=== PATIENT | male | born 1955 | race Caucasian/White ===

== ENCOUNTER 2017-06-02 09:54 | Inpatient (IN) ==
[2017-06-02 10:14] LABS: Basophils % 0.4 %; Eosinophils # 0.3 K/mcL (0.0-0.6); Eosinophils % 3.4 %; Hematocrit 38.7 % (37.5-50.1); Immature Granulocytes % 0.8 % (0-4); Lymphocytes # 1.5 K/mcL (0.6-4.6); Lymphocytes % 17.4 %; Mean Corpuscular HGB Conc 33.6 g/dL (31.6-35.5); Mean Corpuscular Hemoglobin 28.8 pg (28.0-33.3); Mean Corpuscular Volume 85.8 fL (83.0-100.0); Mean Platelet Volume 9.6 fL (9.4-12.4); Monocytes # 0.7 K/mcL (0.0-1.3); Monocytes % 7.8 %; Neutrophils # 5.9 K/mcL (1.6-8.9); Platelet Count 260 K/mcL (140-400); Red Blood Count 4.51 M/mcL (4.19-5.50); Red Cell Distribution Width 12.7 % (11.5-14.5); Segmented Neutrophils % 70.2 %
[2017-06-02 10:17] LABS: Prothrombin Time 11.2 Seconds (9.4-12.1)
[2017-06-02 10:20] LABS: Activated Partial Thrombo Time 31.9 Seconds (26.0-36.0)
[2017-06-02 10:28] LABS: BUN/Creatinine Ratio 15 (6-26); Blood Urea Nitrogen 15 mg/dL (8-26); Carbon Dioxide 24 mEq/L (19-29); Chloride 105 mEq/L (98-109); Glucose 117 mg/dL (70-99); Osmolality,Calculated 292 (280-300); Potassium 3.6 mEq/L (3.5-4.5); Sodium 140 mEq/L (136-145); eGFR For African Americans > 60 (> 60); eGFR For Non-African Americans > 60 (> 60)
--- NOTE | 2017-06-02 10:44 | Emergency Department Note ---
START Narrative - START START: I examined this patient and my medical decision-making was reviewed with the Resident Physician. I agree with the documented findings, disposition and treatment plan as described except to the extent set forth below. The patient to ED with a chief complaint of stroke symptoms. 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 He began having difficulty speaking. He was normal this morning before he left for work. is here at bedside and attests of the same. No history of stroke, but his father of one. On examination he is awake and alert. Mild difficulty with speech. Slurring. Mild flattening of the right nasolabial fold. Plan. Stroke alert was called. We performed telestroke with [facility]. TPA was offered for his NIH of 2, however his symptoms were improving. After discussing risks benefits with him he and his opted not to receive TPA. Patient will be admitted here for further stroke workup. CT head is negative. 40 minutes of critical care exclusive of separately billable procedures.
--- NOTE | 2017-06-02 10:51 | Emergency Department Note ---
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 The patient was awake without problem earlier today. At approximately 8:15 the patient developed a headache as well as dizziness and unsteadiness on his feet. He states that he was having a hard time coming up with how to say what he was thinking. Patient continues to have some slowness of thoughts. On exam the patient has a flattening of the nasolabial fold as well as some minor right- sided pronator drift. He should was unsteady while standing however his finger to nose and heel to fong are intact. No weakness or paresthesias throughout the extremities. Patient has not had anything similar in the past. We will activate the stroke alert and discuss with [facility]. - Related Data Home Medications: Home Medications Medication Instructions Recorded Confirmed Amlodipine Besylate 10 mg PO DAILY 06/02/17 06/02/17 Aspirin [Lo-Dose Aspirin EC] 81 mg PO DAILY 06/02/17 06/02/17 Cyclobenzaprine [Flexeril] 10 mg PO TID 06/02/17 06/02/17 Hydrochlorothiazide [Microzide] 12.5 mg PO DAILY 06/02/17 06/02/17 Irbesartan [Avapro] 300 mg PO DAILY 06/02/17 06/02/17 Metoprolol [Lopressor] 100 mg PO DAILY 06/02/17 06/02/17 Rosuvastatin [Crestor] 20 mg PO HS 06/02/17 06/02/17 Allergies/Adverse Reactions: Allergies Allergy/AdvReac Type Severity Reaction Status Date / Time No Known Allergies Allergy Verified 06/02/17 10:17 Review of Systems: CONSTITUTIONAL: No weight loss, fever, chills, weakness or fatigue. HEENT: Eyes: No visual changes. Ears, Nose, Throat: No hearing loss, difficulty talking or unable to swallow. SKIN: No rash or itching. CARDIOVASCULAR: No chest pain, chest pressure or chest discomfort. No palpitations or edema. RESPIRATORY: No shortness of breath, cough or sputum. GASTROINTESTINAL: No anorexia, nausea, vomiting or diarrhea. No abdominal pain or blood. GENITOURINARY: No burning on urination or hematuria. NEUROLOGICAL: Headache, dizziness, abnormal gait, right facial nasolabial fold flattening, minor right-sided pronator drift. MUSCULOSKELETAL: No muscle pain, back pain, joint pain or stiffness. Past Medical History - Past Medical History Medical history: Reports: hyperlipidemia, hypertension Psychiatric history: Reports: no psych history - Social History Smoking Status: Never smoker Smokeless Tobacco Status: No Alcohol use: Reports: none Physical Exam - General Limitations: no limitations General appearance: alert - Head Head exam: atraumatic, normocephalic - Eye Eye exam: Present: normal appearance, PERRL, EOMI - ENT ENT exam: normal exam, normal oropharynx - Neck Neck exam: Present: normal inspection - Chest Chest inspection: Present: normal inspection, symmetric chest wall rise. Absent : tenderness - Respiratory Respiratory exam: Present: normal lung sounds bilaterally. Absent: respiratory distress, wheezes - Cardiovascular Cardiovascular exam: Present: regular rate, normal rhythm - Abdominal Exam Abdominal exam: Present: soft, Non-Tender - Extremities Exam Extremities exam: Present: normal inspection, full ROM. Absent: tenderness - Back Exam Back exam: Present: normal inspection. Absent: tenderness, CVA tenderness (R), CVA tenderness (L) - Neurological Exam Neurological exam: Present: alert, oriented X3, normal gait - Expanded Neurological Exam Patient oriented to: Present: person, place, time Cranial nerves: EOM function (II, III, IV, ): Normal, facial sensation (V): Normal, facial palsy (VII): Abnormal Right, gag reflex (IX): Normal, spinal accessory function (XI): Normal, tongue deviation (XII): Normal Cerebellar function: finger to nose: Normal, heel to fong: Normal Motor strength - LUE: 5/5 Motor strength - RUE: 5/5 Motor strength - LLE: 5/5 Motor strength - RLE: 5/5 Upper motor neuron exam: pronator drift: Present of right Sensory exam upper extremity: light touch: Normal Sensory exam lower extremity: light touch: Normal Coma Scale Eye Opening: Spontaneous Coma Scale Motor Response: Obeys Commands Coma Scale Verbal Response: Oriented (The patient is slow to come up with words. Occasional blank thoughts.) Coma Scale Total: 15 Course - Consultations Consultation #1: Case was discussed with [facility]. The patient is not a candidate for TPA at this time as his symptoms are minor. Risks and benefits weighed. Risk for TPA outweigh risk for observation. Consultation #2: Dr. Bynum discussed with Dr. Johnson. Patient accepted for admission. Vital Signs Temperature 97.8 F 06/02/17 10:04 Pulse Rate 62 06/02/17 10:04 Respiratory Rate 18 06/02/17 10:04 Blood Pressure 132/92 06/02/17 10:04 O2 Sat by Pulse Oximetry 97 06/02/17 10:04 Temperature 97.8 F 06/02/17 10:04 Pulse Rate 62 06/02/17 12:34 Respiratory Rate 12 06/02/17 12:34 Blood Pressure 120/81 06/02/17 12:34 O2 Sat by Pulse Oximetry 97 06/02/17 12:34 Oxygen Delivery Oxygen Delivery Room Air Neuro Symptoms/Deficit - Lab Data Result diagrams: 06/02/17 10:07 06/02/17 10:07 Lab Results 06/02/17 06/02/17 06/02/17 Range/Units 10:01 10:07 10:07 WBC 8.4 (4.3-11.1) K/mcL RBC 4.51 (4.19-5.50) M/mcL Hgb 13.0 (12.9-16.9) g/dL Hct 38.7 (37.5-50.1) % MCV 85.8 (83.0-100.0) fL MCH 28.8 (28.0-33.3) pg MCHC 33.6 (31.6-35.5) g/dL RDW 12.7 (11.5-14.5) % Plt Count 260 (140-400) K/mcL MPV 9.6 (9.4-12.4) fL Immature Gran % 0.8 (0-4) % Seg Neutrophils % 70.2 % Lymphocytes % 17.4 % Monocytes % 7.8 % Eosinophils % 3.4 % Basophils % 0.4 % Neutrophils # 5.9 (1.6-8.9) K/mcL Lymphocytes # 1.5 (0.6-4.6) K/mcL Monocytes # 0.7 (0.0-1.3) K/mcL Eosinophils # 0.3 (0.0-0.6) K/mcL Basophils # 0.0 (0.0-0.2) K/mcL PT 11.2 (9.4-12.1) Seconds INR 1.0 APTT 31.9 (26.0-36.0) Seconds Sodium (136-145) mEq/L Potassium (3.5-4.5) mEq/L Chloride (98-109) mEq/L Carbon Dioxide (19-29) mEq/L BUN (8-26) mg/dL Creatinine (0.72-1.25) mg/dL Est GFR ( Amer) (> 60) Est GFR (Non-Af Amer) (> 60) BUN/Creatinine Ratio (6-26) Glucose (70-99) mg/dL POC Glucose 106 H (58-89) Calculated Osmolality (280-300) Calcium (8.6-10.8) mg/dL Troponin I (0-0.03) ng/mL 06/02/17 06/02/17 Range/Units 10:07 10:07 WBC (4.3-11.1) K/mcL RBC (4.19-5.50) M/mcL Hgb (12.9-16.9) g/dL Hct (37.5-50.1) % MCV (83.0-100.0) fL MCH (28.0-33.3) pg MCHC (31.6-35.5) g/dL RDW (11.5-14.5) % Plt Count (140-400) K/mcL MPV (9.4-12.4) fL Immature Gran % (0-4) % Seg Neutrophils % % Lymphocytes % % Monocytes % % Eosinophils % % Basophils % % Neutrophils # (1.6-8.9) K/mcL Lymphocytes # (0.6-4.6) K/mcL Monocytes # (0.0-1.3) K/mcL Eosinophils # (0.0-0.6) K/mcL Basophils # (0.0-0.2) K/mcL PT (9.4-12.1) Seconds INR APTT (26.0-36.0) Seconds Sodium 140 (136-145) mEq/L Potassium 3.6 (3.5-4.5) mEq/L Chloride 105 (98-109) mEq/L Carbon Dioxide 24 (19-29) mEq/L BUN 15 (8-26) mg/dL Creatinine 0.97 (0.72-1.25) mg/dL Est GFR ( Amer) > 60 (> 60) Est GFR (Non-Af Amer) > 60 (> 60) BUN/Creatinine Ratio 15 (6-26) Glucose 117 H (70-99) mg/dL POC Glucose (58-89) Calculated Osmolality 292 (280-300) Calcium 9.0 (8.6-10.8) mg/dL Troponin I 0.00 (0-0.03) ng/mL TPA Checklist - LKW: 3-4.5 hrs Add. Warnings/Precautions Patient/family understanding: The patient/family members have been counseled and understood the risk, benefit , and alternatives of treatment.
--- NOTE | 2017-06-02 11:17 | Internal Med History&Physical ---
Date of Encounter: 06/02/17 Time of Encounter: 11:13 Assessment and Plan (1) CVA (cerebral vascular accident) Current visit: Yes Status: Acute Patient presents with a main complaining of dysarthria that started 8:15 AM in the morning. Patient was within 1st 3 hours to emergency room however his NIH stroke scale was only 2 therefore it was decided against thrombolytic therapy. Patient symptoms is already improving. Will admit patient to hospital check echocardiogram, carotid Doppler, hold all blood pressure medications and allow for permissive hypertension. Neurology service to see the patient. Continue aspirin and Ramsay. Qualifiers: Qualified Code(s): I63.9 - Cerebral infarction, unspecified (2) LBBB (left bundle branch block) Current visit: Yes Status: Acute Unchanged from his baseline according to his . Patient has baseline left bundle branch block. mentioned that he had a coronary angiogram 20 years ago showed no occlusive disease Internal Medicine - H&P: HPI Chief complaint: dysarthria History of present illness: Mr. Morales is a 61 year old male presents to the emergency room today with the main complain of dysarthria. Approximately 8:15 AM patient started noticing difficulty articulating speech. He also complained of dizziness as well as gate unsteadiness. He was normal when he woke up. He arrived to the emergency room within 3 hours of onset of symptoms. Patient symptoms had improved during my interview significantly but not yet back to baseline. Patient denies any prior similar symptoms. Patient denies any focal weakness tingling or numbness in any extremity. Past Med Surg Social Fam HX - Past Medical History Medical history: hyperlipidemia, hypertension Psychiatric history: no psych history - Social History Smoking Status: Never smoker Smokeless Tobacco Status: No Alcohol use: none - Family History Father Hx Family Cardiac Disorders: Yes Hx Family Neurologic Disorders: Yes (father from stroke) Mother Hx Family Cardiac Disorders: Yes Internal Medicine - H&P: Meds Amlodipine Besylate 10 mg PO DAILY 06/02/17 [History] Aspirin [Lo-Dose Aspirin EC] 81 mg PO DAILY 06/02/17 [History] Cyclobenzaprine [Flexeril] 10 mg PO TID 06/02/17 [History] Hydrochlorothiazide [Microzide] 12.5 mg PO DAILY 06/02/17 [History] Irbesartan [Avapro] 300 mg PO DAILY 06/02/17 [History] Metoprolol [Lopressor] 100 mg PO DAILY 06/02/17 [History] Rosuvastatin [Crestor] 20 mg PO HS 06/02/17 [History] 3 Allergy/AdvReac Type Severity Reaction Status Date / Time No Known Allergies Allergy Verified 06/02/17 10:17 All Systems PM: A 10-system review of systems was performed and is negative for pertinent findings except as documented above in the HPI. Review of systems: 10 point review of systems is negative except for HPI - Constitutional Vitals: Temp Pulse Resp BP Pulse Ox 97.8 F 66 8 132/81 99 06/02/17 10:04 06/02/17 11:04 06/02/17 11:04 06/02/17 11:04 06/02/17 11:04 Exam: Gen.: patient is alert oriented times 3 cardiac: normal S1 S2 no additional sounds or murmurs chest: no active wheezing or bronchial breathing abdomen soft nontender nondistended normal bowel sounds lower extremity no swelling. Neuro: dysarthria. Rest of neuro exam is unremarkable. Internal Med - H&P Results - Labs CBC & Chem 7: 06/02/17 10:07 06/02/17 10:07
--- NOTE | 2017-06-02 15:18 | Neurology - Consult Note ---
Date of Encounter: 06/02/17 Time of Encounter: 15:16 Assessment and Plan (1) Slurred speech Current Visit: Yes Status: Acute This patient who noted to have some slurring of the speech this morning seems to resolve now, with some unsteadiness, seems to be back to his baseline symptoms seems to be concerning off transient ischemic attack or perhaps he may have a small infarct. Patient due to stroke workup including MRI of the brain as well as carotid duplex and echocardiogram for any embolic source A to monitor his blood pressure and also need to monitor for any cardiac arrhythmias He is been on baby aspirin suggested to continue perhaps he may have to change to full dose or may need to add another antiplatelet agent like Plavix if MRI is positive for any acute infarct, check lipid profile Continue to monitor the blood pressure and keep it on a stable range no significant focal motor deficit do not think he would require any long-term rehabilitation History of Present Illness HPI: Mr. Morales is a 61 year old male admitted via emergency room today with the main complain of difficulty with speech, Approximately 8:15 AM patient started noticing difficulty articulating speech, along with dizziness as well as gate unsteadiness. he knows what he want to say but didt come out right, He arrived to the emergency room within 3 hours of onset of symptoms. Patient symptoms had improved in ER and not a TPA candidate due to improvement in symptoms, Patient denies any prior similar symptoms. Patient denies any focal weakness tingling or numbness in any extremity. Past Med Surg Social Fam HX - Past Medical History Medical history: hyperlipidemia, hypertension Psychiatric history: no psych history - Social History Smoking Status: Never smoker Smokeless Tobacco Status: No Alcohol use: none - Family History Father Hx Family Cardiac Disorders: Yes Hx Family Neurologic Disorders: Yes (father from stroke) Mother Hx Family Cardiac Disorders: Yes Medications and Allergies Amlodipine Besylate 10 mg PO DAILY 06/02/17 [History] Aspirin [Lo-Dose Aspirin EC] 81 mg PO DAILY 06/02/17 [History] Cyclobenzaprine [Flexeril] 10 mg PO TID 06/02/17 [History] Hydrochlorothiazide [Microzide] 12.5 mg PO DAILY 06/02/17 [History] Irbesartan [Avapro] 300 mg PO DAILY 06/02/17 [History] Metoprolol [Lopressor] 100 mg PO DAILY 06/02/17 [History] Rosuvastatin [Crestor] 20 mg PO HS 06/02/17 [History] 3 Allergy/AdvReac Type Severity Reaction Status Date / Time No Known Allergies Allergy Verified 06/02/17 10:17 All Systems: A 10-system review of systems was performed and is negative for pertinent findings except as documented above in the HPI. Physical Examination - Vital Signs Vital Signs: Initial Vital Signs Pulse Resp BP Pulse Ox 79 16 132/92 97 06/02/17 10:15 06/02/17 10:15 06/02/17 10:15 06/02/17 10:15 - Constitutional General appearance: comfortable - Neurologic Detailed motor examination: full strength in all major muscle groups Motor examination - right side: 5/5: deltoids, biceps, triceps, wrist flexion, wrist extension, construction equipment mechanic helper, hip flexors, tibialis Anterior, quadriceps, toe extension (EHL), plantarflexion Motor examination - left side: 5/5: deltoids, biceps, triceps, wrist flexion, wrist extension, hip flexors, construction equipment mechanic helper, quadriceps, tibialis Anterior, toe extension (EHL), plantarflexion Detailed sensory examination: intact Reflexes: Biceps: 1+, Triceps: 1+, Brachioradialis: 1+, Patella: 1+, Achilles: 1 + Mental Status Examination: awake, alert, oriented to person, oriented to place, oriented to time, follows commands appropriately, answers questions appropriately, no agnosia, no aphasia, no aproxia Cranial nerve examination: PERRL, EOMI, visual vázquez intact, corneal reflexes brisk symmetrically, sensory to face intact, mastication intact, no facial asymmetry is present, no dysarthria (mild slurring of speech no aphasia), hearing is intact symmetrically, soft palate elevates bilaterally upon phonation , gag reflex intact, flexes SCM and trapezius muscles symmetrically with full power, tongue protrudes midline, no atrophy or facial fasiculations present Cerebellar examination: no dysmetria, performs finger to nose and heel to fong symmetrically without ataxia, no gait ataxia, no truncal ataxia, no difficulty with rapid alternating movements Results - Laboratory Findings CBC and BMP: 06/02/17 10:07 06/02/17 10:07 Abnormal lab findings: Abnormal lab results Glucose 117 mg/dL (70-99) H 06/02/17 10:07 POC Glucose 106 (58-89) H 06/02/17 10:01 Consult Discharge Plan - Plan Referrals: Tenzin Jewell DO [Primary Care Provider] -
[2017-06-02] MEDS ORDERED: Ondansetron 4 MG/2 ML VIAL IVP PRN (16:59)
[2017-06-02] MEDS: Acetaminophen 325 MG TABLET PO PRN (17:10)
[2017-06-02] MEDS: *HR* Heparin 5,000 UNIT/ML VIAL SQ SCH (17:10)
[2017-06-03 04:51] LABS: Basophils % 0.4 %; Eosinophils # 0.3 K/mcL (0.0-0.6); Eosinophils % 4.8 %; Hematocrit 41.7 % (37.5-50.1); Hemoglobin 14.3 g/dL (12.9-16.9); Immature Granulocytes % 0.7 % (0-4); Lymphocytes % 29.9 %; Mean Corpuscular HGB Conc 34.3 g/dL (31.6-35.5); Mean Corpuscular Hemoglobin 29.2 pg (28.0-33.3); Mean Corpuscular Volume 85.3 fL (83.0-100.0); Mean Platelet Volume 10.7 fL (9.4-12.4); Monocytes # 0.8 K/mcL (0.0-1.3); Monocytes % 12.2 %; Neutrophils # 3.5 K/mcL (1.6-8.9); Platelet Count 263 K/mcL (140-400); Red Blood Count 4.89 M/mcL (4.19-5.50); Red Cell Distribution Width 12.9 % (11.5-14.5)
[2017-06-03 05:00] LABS: BUN/Creatinine Ratio 16 (6-26); Blood Urea Nitrogen 16 mg/dL (8-26); Calcium 9.4 mg/dL (8.6-10.8); Carbon Dioxide 25 mEq/L (19-29); Chloride 108 mEq/L (98-109); Glucose 88 mg/dL (70-99); Magnesium 2.3 mg/dL (1.6-2.6); Osmolality,Calculated 301 (280-300); Potassium 3.9 mEq/L (3.5-4.5); Sodium 145 mEq/L (136-145); eGFR For African Americans > 60 (> 60); eGFR For Non-African Americans > 60 (> 60)
[2017-06-03] MEDS: *HR* Heparin 5,000 UNIT/ML VIAL SQ SCH (06:07)
[2017-06-03] MEDS ORDERED: Aspirin Enteric Coated 81 MG Tablet PO SCH (09:00)
[2017-06-03] MEDS: Acetaminophen 325 MG TABLET PO PRN (09:14)
--- NOTE | 2017-06-03 10:10 | Neurology Progress Note ---
Date of Encounter: 06/03/17 Time of Encounter: 07:50 Assessment and Plan (1) Slurred speech Current Visit: Yes Status: Acute This patient who noted to have some slurring of the speech this morning seems to resolve now, back to his baseline symptoms seems to be concerning off transient ischemic attack or perhaps he may have a small infarct. awaits MRI of brain, and echo so far Blood pressure seem to be stable, suggest to continue on ASA along with other meds if MRI is negative can be discharged to home later today and follow up with primary care for the management of hypertension and other medical condition. Subjective Interval history: Patient remained stable no focal neurological deficit speech is back to baseline. awaits MRI of the brain and carotids negative for any critical stenosis Objective - Constitutional Vitals: Temp Pulse Resp BP Pulse Ox 98.4 F 76 18 137/74 96 06/03/17 07:06 06/03/17 07:06 06/03/17 07:06 06/03/17 07:06 06/03/17 07:06 - Neurological Exam Motor Examination: Present: full strength in all major muscle groups Motor examination - left side: 5/5: deltoids, biceps, triceps, wrist flexion, wrist extension, hip flexors, managing consultant clinical professor, quadriceps, tibialis Anterior, toe extension (EHL), plantarflexion Sensation intact: Present: intact Mental Status Examination: Present: awake, alert, oriented to person, oriented to place, oriented to time, follows commands appropriately, answers questions appropriately, no agnosia, no aphasia, no aproxia Cranial nerve examination: Present: PERRL, EOMI, visual vázquez intact, corneal reflexes brisk symmetrically, sensory to face intact, mastication intact, no facial asymmetry is present, no dysarthria (mild slurring of speech no aphasia) , hearing is intact symmetrically, soft palate elevates bilaterally upon phonation, gag reflex intact, flexes SCM and trapezius muscles symmetrically with full power, tongue protrudes midline, no atrophy or facial fasiculations present Cerebellar examination: Present: no dysmetria, performs finger to nose and heel to fong symmetrically without ataxia, no gait ataxia, no truncal ataxia, no difficulty with rapid alternating movements - VTE Documentation of Mechanical Device: Intermittent pneumatic compression device Results - Laboratory Findings CBC and BMP: 06/03/17 03:51 06/03/17 03:51 Abnormal lab findings: Abnormal lab results POC Glucose 106 (58-89) H 06/02/17 10:01 Calculated Osmolality 301 (280-300) H 06/03/17 03:51 Consult Discharge Plan - Plan Referrals: Tenzin Jewell DO [Primary Care Provider] - 06/09/17 1:00 pm
[2017-06-03 12:09] VITALS: BP 137/72
--- NOTE | 2017-06-03 12:48 | Discharge Summary ---
Date of Encounter: 06/03/17 Time of Encounter: 09:00 - Discharge Diagnosis (1) LBBB (left bundle branch block) Priority: Secondary Status: Acute Comments: slurring speech this morning seems to resolve now, with some unsteadiness, seems to be back to his baseline stroke workup including MRI of the brain no evidence of stroke as well as carotid duplex no significant carotid artery stenosis and echocardiogram normal ejection fraction , no evidence of blood clot (2) Slurred speech Priority: Primary Status: Acute - Discharge Medications Home Medications: Amlodipine Besylate 10 mg PO DAILY 06/02/17 [History] Aspirin [Lo-Dose Aspirin EC] 81 mg PO DAILY 06/02/17 [History] Cyclobenzaprine [Flexeril] 10 mg PO TID 06/02/17 [History] Hydrochlorothiazide [Microzide] 12.5 mg PO DAILY 06/02/17 [History] Irbesartan [Avapro] 300 mg PO DAILY 06/02/17 [History] Metoprolol [Lopressor] 100 mg PO DAILY 06/02/17 [History] Rosuvastatin [Crestor] 20 mg PO HS 06/02/17 [History] Allergies/Adverse Reactions: 3 Allergy/AdvReac Type Severity Reaction Status Date / Time No Known Allergies Allergy Verified 06/02/17 10:17 Procedures/tests Complete & Pending: Procedures Performed prior 72 hours Category Date Time Status MR head/brain wo con [MR] Routine MRI 06/02/17 20:52 Completed Date of admission: 06/02/17 11:08 Primary care physician: Tenzin Jewell DO Consults: 06/02/17 11:10 Consult to Neurology [CONS] Routine Consulting Provider: [facility] Reason for Consult: CVA Call Completed: No - Patient Status Disposition: Home, Self-Care Condition: Good Functional capacity at discharge: independent ambulation Overall status at discharge: patient is back to baseline - Discharge Instructions Follow Up With: Tenzin Jewell DO [Primary Care Provider] - 06/09/17 1:00 pm Forms: ED Satisfaction Letter - Diet and Activity Activity: resume usual activities as tolerated Diet: low fat, low cholesterol Interval History: Mr. Morales is a 61 year old male admitted via emergency room with complain of difficulty with speech, Approximately 8:15 AM patient started noticing difficulty articulating speech, along with dizziness as well as gate unsteadiness. he knows what he want to say but didt come out right, He arrived to the emergency room within 3 hours of onset of symptoms. Patient symptoms had improved in ER and not a TPA candidate due to improvement in symptoms, Patient denies any prior similar symptoms. Patient denies any focal weakness tingling or numbness in any extremity.slurring speech this morning seems to resolve now, with some unsteadiness, seems to be back to his baseline stroke workup including MRI of the brain no evidence of stroke as well as carotid duplex no significant carotid artery stenosis and echocardiogram normal ejection fraction , moderate left ventricular diastolic dysfunction no evidence of blood clot . Patient is feeling back to his baseline. Patient denies any nausea or vomiting. MRI No acute intracranial abnormality.Trace parenchymal volume loss.Minimal chronic microvascular disease.Trace right mastoid effusion.Trace right mastoid effusion adjacent to the right semicircular canals.Question of nonspecific asymmetric prominence of the right stylomastoid foramen. Follow-up CT temporal bone with contrast. Discussed with Radiology. He stated if patient gait is back to normal this is most likely incidental finding. Need to have CAT scan in 2 months to reevaluate. Discussed with patient. Patient stated that he used to see ENT in the past. Patient will follow up with ENT. Patient denies any ear pain. Patient denies any nausea vomiting or dizziness. Patient stated that he is back to his baseline . - Time Spent with Patient Total time spent providing and/or coordinating discharge services: Less than 30 minutes - Constitutional Vitals: Temp Pulse Resp BP Pulse Ox 98.2 F 80 17 137/72 95 06/03/17 12:08 06/03/17 12:08 06/03/17 12:08 06/03/17 12:08 06/03/17 12:08 - Head Head exam: Present: atraumatic, normocephalic - Neck Neck exam general surgery: Present: supple, trachea midline. Absent: lymphadenopathy - Respiratory Respiratory exam: Present: CTAB. Absent: accessory muscle use, rales, rhonchi, wheezes - Cardiovascular Cardiovascular exam: Present: RRR, +S1, +S2. Absent: diastolic murmur, gallop, rubs, systolic murmur - GI/Abdominal GI/Abdominal exam: Present: normal bowel sounds, soft, no peritoneal signs. Absent: distended, tenderness - Extremities Exam Extremities exam: Present: warm, radial pulses palpable and symmetrical. Absent : calf tenderness, cyanotic, pedal edema - Neurological Exam Neurological exam: Present: CN II-XII intact, oriented X3, no focal deficits. Absent: pronater drift, facial droop, speech deficit - Skin Skin exam: Present: dry, intact - VTE Documentation of Mechanical Device: Intermittent pneumatic compression device
[2017-06-03 13:12] LABS: Chol/HDL Ratio 3.3 (0-4.9); Cholesterol 117 mg/dL (< 200); HDL Cholesterol 36 mg/dL (40-59); LDL Cholesterol,Calculated 56 mg/dL (0-99); Triglycerides 123 mg/dL (< 150)
[2017-06-03] MEDS ORDERED: FLUARIX QUAD 2017-18 36MOS UP/PF 0.5 ML SYRINGE IM ONE (13:15)
--- NOTE | 2017-06-05 11:24 | Electrocardiograph Report ---
[place] [id number] Test Date: 2017-06-02 Pat Name: Nabeel Morales Department: 103 Room: 3B Gender: M Chemical Engineer: : 1955 Requested By: Genie See Order Number: [id number] Reading MD: Evonne Wolff Measurements Intervals [place] Rate: 69 P: 44 WI: 207 QRS: -28 QRSD: 161 T: 96 QT: 471 QTc: 490 Interpretive Statements SINUS RHYTHM LEFT BUNDLE BRANCH BLOCK Electronically Signed On 06-05-2017 11:22:43 EDT by Evonne Wolff
== END 2017-06-03 14:50 | disposition home or self-care (01) | DRG 93 ==
LOC: EMEROO 09:54 → 2NENU 09:54 → 3BNU 12:46
PROVIDERS: ADMIT Hospitalist; ATTEND Internal Medicine